=== PATIENT | female | born 2000 | race Caucasian/White ===

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

== ENCOUNTER 2021-02-07 10:22 | Emergency (ER) | payer BC, SELFPAY ==
[2021-02-07 10:27] VITALS: BP 143/85; PULSE 115; RESP 16; TEMP 36.7; O2SAT 100
--- NOTE | 2021-02-07 10:30 | ED.URI ---
HPI - URI/Sore Throat General Chief Complaint: Upper Respiratory Infection Stated Complaint: Sinus infection Time Seen by Provider: 02/07/21 10:30 Source: patient and RN notes reviewed Mode of arrival: ambulatory Limitations: no limitations History of Present Illness HPI Narrative: 20-year-old female presents to the [facility] with complaints of a sinus infection. Patient reports a cough, worse first thing in the morning along with a sore throat. States symptoms have been going on for approximately 4 days. No treatment prior to arrival. States that she plays for [employer] and gets tested weekly for Covid. Last test 8 days ago which she reports is negative. Denies any chest pain, shortness of breath. No abdominal pain or fevers. No nausea vomiting or diarrhea. Related Data Home Medications Medication Instructions Recorded Confirmed meloxicam 15 mg PO DAILY 02/07/21 02/07/21 norgestimate-ethinyl estradiol 1 tablet PO DAILY 02/07/21 02/07/21 [Tri-Sprintec (28)] Allergies Allergy/AdvReac Type Severity Reaction Status Date / Time No Known Allergies Allergy Mild Verified 02/07/21 11:01 Review of Systems Review of Systems: All systems reviewed & are unremarkable except as noted in HPI and below Constitutional: Constitutional: Reports no additional constitutional complaints, Denies chills and Denies fever(s) Eyes: Eyes: Reports no additional eye complaints, Denies change in vision and Denies photophobia ENT: Reports as per HPI and Reports sore throat Cardiovascular: Cardiovascular: Reports no additional cardiovascular complaints and Denies chest pain Respiratory: Respiratory: Reports as per HPI, Reports cough and Denies dyspnea Gastrointestinal: Gastrointestinal: Reports no additional gastrointestinal complaints, Denies abdominal pain, Denies nausea and Denies vomiting Musculoskeletal: Musculoskeletal: Reports no additional musculoskeletal complaints Integumentary/Breasts: Skin/Breast: Reports system reviewed and no additional complaints, except as docu Neurologic: Reports system reviewed and no additional complaints, except as documented Psychiatric: Psychiatric: Reports no additional psychiatric complaints Allergic/Immunologic: Allergic/Immunologic: Reports no additional allergic/immunologic complaints [facility] Past Medical History Medical History (Updated 02/07/21 @ 10:57 by Ailyn Aguilera) Anxiety Constipation Strep throat Surgical History Surgical History History of arthroscopic surgery of elbow Family History Family History Mother Family history of migraine headaches Social History Social History Smoking status: Never smoker Alcohol intake: never Gender identity (if verbalized by the patient): Female Comments At the time of my signature, I reviewed and agree with the nursing past medical, surgical, social, and family history. There is no relevant family history pertinent to the patient complaint. Exam Const: General: healthy appearing, no acute distress and alert Nutritional Appearance: well nourished Orientation/consciousness: patient oriented x3 Limitations: no limitations HENMT: Head: normal to inspection Ears: external ears normal, EAC's normal and TM abnormal with fluid behind the TM bilateral (worse on the right then left); not perforated General nose exam: Normal external nose present, Normal nasal mucous membranes and turbinates present and Nasal discharge present clear Face and sinus: normal facial exam Mouth: Yes Normal oral and palatal mucosa present Throat: tonsils normal, uvula midline and postnasal drainage Eyes: Conjunctivae: conjunctivae normal Pupils: Equal, round and reactive pupils present Neck: Neck: normal visual inspection, no lymphadenopathy and no meningeal signs Chest: Chest palpation & inspectio
--- NOTE | 2021-02-07 11:19 | PC.NURSE ---
Denny at [facility] called for PCR pickup
[2021-02-09 19:01] LABS: SARS-CoV-2 RNA PCR Negative
== END 2021-02-07 11:04 | disposition home or self-care (01) ==
PROVIDERS: Emergency Provider Nurse Practitioner; PCP Physician Assistant
DX: J30.9 Allergic rhinitis, unspecified (principal); Z20.822 Contact with and (suspected) exposure to COVID-19; Z79.1 Long term (current) use of non-steroidal anti-inflammatories (NSAID)
CPT/HCPCS: 87081; 87880; 99213; C9803; G0463; U0003; U0005

== ENCOUNTER 2022-04-13 13:45 | Emergency (ER) | payer BC, SELFPAY ==
[2022-04-13 14:07] VITALS: BP 133/81; PULSE 77; RESP 18; TEMP 36.3; O2SAT 100
--- NOTE | 2022-04-13 15:17 | ED.EAR ---
HPI - Ear Problem General Chief complaint: Ear Stated complaint: lt ear pain Time Seen by Provider: 04/13/22 15:00 Source: patient Mode of arrival: ambulatory Limitations: no limitations History of Present Illness HPI Narrative: A 21-year-old female presents with complaint of nasal congestion, runny nose, bilateral ear pain for 3 days. Not taking any [id number] medications to treat her symptoms. Today woke up and felt like ears were clogged, like I couldn't hear . Afebrile. No cough. Denies dizziness. No nausea vomiting diarrhea. All systems reviewed and negative except as noted above. Related Data Home Medications Medication Instructions Recorded Confirmed meloxicam 15 mg tablet 15 mg PO DAILY 02/07/21 04/13/22 norgestimate-ethinyl estradiol 1 tablet PO DAILY 02/07/21 04/13/22 0.18 mg/0.215mg/0.25mg-35 mcg(28)tablet (Tri-Sprintec (28)) buspirone 10 mg tablet 10 mg PO DAILY 04/13/22 04/13/22 Allergies Allergy/AdvReac Type Severity Reaction Status Date / Time No Known Allergies Allergy Mild Verified 04/13/22 14:41 Review of Systems Review of Systems: CONSTITUTIONAL: Denies fever, chills, or sweats. EYES: Denies visual changes, redness, or discharge. ENT: Reports rhinorrhea, congestion. Denies sore throat. Bilateral ear pain, decreased hearing. CARDIOVASCULAR: Denies chest pain, palpitations, or edema. RESPIRATORY: Denies cough or dyspnea. GASTROINTESTINAL: Denies abdominal pain, nausea, vomiting, or diarrhea. GENITOURINARY: Denies dysuria or hematuria. SKIN: Denies rash or itching. MUSCULOSKELETAL: Denies back pain, joint pain, or myalgia. NEUROLOGIC: Denies headache, numbness, or weakness. PSYCHIATRIC: Denies anxiety or depression. All other systems reviewed are negative, except as documented in HPI. [facility] Past Medical History Medical History (Updated 04/13/22 @ 15:16 by Sarika Jaramillo NP) Anxiety Constipation Strep throat Surgical History Surgical History History of arthroscopic surgery of elbow Family History Family History Mother Family history of migraine headaches Social History Social History Smoking status: Never smoker Alcohol intake: never Gender identity (if verbalized by the patient): Female Comments At time of signature, agree with nursing past medical, surgical, social and family history. There is no relevant family history pertinent to the presenting complaint. Exam Narrative: GENERAL: This is a well-nourished, well-developed patient, in no apparent distress. HEAD: normocephalic, atraumatic. EYES: PERRL. Sclera clear/white. Vision is grossly intact. EARS: External ears normal, auditory canals clear and without drainage, Mild fluid bilateral TMs without erythema or bulging. No perforation. NOSE: External nose normal with Clear nasal drainage, mild congestion without sinus tenderness. THROAT: Mucous membranes moist, posterior pharynx clear. NECK: Neck supple, non-tender without lymphadenopathy, masses or thyromegaly. CARDIOVASCULAR: Regular rate and rhythm without murmurs, gallops, or rubs. RESPIRATORY: Clear to auscultation. Breath sounds equal bilaterally. No wheezes, rales, or rhonchi. SKIN: warm, Dry, intact with no suspicious lesions or rash, good texture and turgor. NEURO: awake, alert, and oriented to person, place and time. There were no obvious focal neurologic abnormalities. EXTREMITIES: No joint tenderness, effusion, or edema noted. Course Course Level of Care: Express Care Visit Vital Signs Vital signs: Vital Signs Temperature 36.3 C L 04/13/22 14:07 Pulse Rate 77 04/13/22 14:07 Respiratory Rate 18 04/13/22 14:07 Blood Pressure 133/81 04/13/22 14:07 Pulse Oximetry 100 04/13/22 14:07 Oxygen Delivery Room Air 04/13/22 14:07 Temperature
== END 2022-04-13 15:20 | disposition home or self-care (01) ==
PROVIDERS: Emergency Provider Nurse Practitioner Family; PCP Physician Assistant
DX: J01.90 Acute sinusitis, unspecified (principal); Z79.1 Long term (current) use of non-steroidal anti-inflammatories (NSAID)
CPT/HCPCS: 99213; G0463